=== PATIENT | female | born 1940 | race Hispanic/Latino ===

== ENCOUNTER 2017-05-15 12:16 | Inpatient (IN) | payer MEDICARE ==
[2017-05-15] MEDS ORDERED: Ceftaroline 600 MG in Sodium Chloride 0.9% 100 ML IVPB STA (12:41)
--- NOTE | 2017-05-15 12:44 | ED PDOC ---
Arrival/HPI - General Chief Complaint: Abnormal Skin Integrity Time Seen by Provider: 05/15/17 12:17 Historian: Patient, Family - History of Present Illness Narrative History of Present Illness (Text): 05/15/17 12:37 A 76 year old female, whose past medical history includes pulmonary hypertension , hyperlipidemia, DC, CAD with stents and CHF on Lasix, sent into the emergency department by [facility] for admission concerning worsening right lower extremity wound for 3 weeks. Patient notes pain and itchiness to area. She reports she completed a course of cipro 5 days ago, with no improvement of symptoms. Patient had a recent bilateral lower extremity ultrasound, which showed negative for DVT. Patient denies any fever, chills, nausea, vomiting, abdominal pain, chest pain, shortness of breath, cough, headache, dizziness or any other complaints. PMD: Dr. Kellogg Press Leader: Dr. Laura Time/Duration: Other (3 weeks) Symptom Course: Worsening Quality: Other Context: Home Past Medical History - Provider Review Nursing Documentation Reviewed: Yes - Infectious Disease Hx of Infectious Diseases: None - Reproductive Menopause: Yes - Cardiac Hx Cardiac Disorders: Yes Hx Angina: Yes Hx Circulatory Problems: Yes Hx DC: Yes (1990) Hx Hypertension: Yes Other/Comment: ashd - Pulmonary Hx Respiratory Disorders: Yes Other/Comment: sob - Neurological Hx Neurological Disorder: Yes Hx Dizziness: Yes Other/Comment: numbness upper and lower extremities - HEENT Hx HEENT Disorder: Yes Hx Cataracts: Yes - Endocrine/Metabolic Hx Endocrine Disorders: Yes Hx Hypothyroidism: Yes - Hematological/Oncological Hx Blood Disorders: Yes Hx Anemia: Yes - Integumentary Hx Dermatological Disorder: Yes Other/Comment: rash right groin - Musculoskeletal/Rheumatological Hx Musculoskeletal Disorders: Yes Hx Fractures: Yes (right ankle) Hx Osteoarthritis: Yes Hx Unsteady Gait: Yes - Gastrointestinal Hx Gall Bladder Disease: Yes - Genitourinary/Gynecological Hx Genitourinary Disorders: Yes Hx Urinary Tract Infection: Yes - Psychiatric Hx Psychophysiologic Disorder: Yes Hx Anxiety: Yes Hx Depression: Yes Hx Substance Use: No - Surgical History Hx Cataract Extraction: Yes Hx Cardiac Catheterization: Yes Hx Cholecystectomy: Yes Hx Coronary Stent: Yes (x2) Hx Dilation and Curettage: Yes - Anesthesia Hx Anesthesia: Yes Hx Anesthesia Reactions: No Family/Social History - Physician Review Nursing Documentation Reviewed: Yes Family/Social History: No Known Family HX Smoking Status: Never Smoked Hx Alcohol Use: No Hx Substance Use: No Allergies/Home Meds Allergies/Adverse Reactions: Allergies erythromycin base Allergy (Verified 05/15/17 12:34) RASH Iodinated Contrast- Oral and IV Dye [Iodinated Contrast Media - IV Dye] Allergy (Verified 05/17/16 07:16) SHORTNESS OF BREATH Penicillins Allergy (Verified 05/17/16 07:16) RASH Sulfa (Sulfonamide Antibiotics) Allergy (Verified 05/17/16 07:16) RASH ivp dye Allergy (Uncoded 05/15/17 12:34) RASH tape Allergy (Uncoded 05/15/17 12:34) RASH Home Medications: Home Meds Medication Instructions Recorded Confirmed Carvedilol [Coreg] 3.125 mg PO DAILY 05/17/16 05/15/17 Dstiobiflex 05/15/17 Furosemide [Lasix] 60 mg PO DAILY 05/15/17 05/15/17 Ginkgo Biloba 0 mg PO 05/15/17 Rosuvastatin Calcium [Crestor] 20 mg PO HS 05/15/17 05/15/17 Tramadol HCl/Acetaminophen 1 tab PO PRN PRN 05/15/17 05/15/17 [Acetaminophen-Tramadol HCl 325 mg-37.5 mg] Ubidecarenone [Co Q-10] 1 tab PO DAILY 05/15/17 05/15/17 Vitamin D3 1 tab PO DAILY 05/15/17 05/15/17 Vitamin B Complex [B Complex] 1 each PO DAILY 05/15/17 05/15/17 Review of Systems - Physician Review All systems were reviewed & negative as marked: Yes - Review of Systems Constitutional: absent: Fevers, Night Sweats Respiratory: absent: SOB, Cough Cardiovascular: absent: Chest Pain Gastrointestinal: absent: Abdominal Pain, Nausea, Vomiting Skin: absent: Other (right lower extremity wound) Neurological: absent: Headache, Dizziness Physical Exam Vital Signs Temp Pulse Resp BP Pulse Ox 05/15/17 13:30 66 18 132/59 L 98 05/15/17 12:42 98.1 F 61 18 134/57 L 98 Temperature: Afebrile Blood Pressure: Normal Pulse: Regular Respiratory Rate: Normal Appearance: Positive for: Well-Appearing, Non-Toxic, Comfortable, Other ( Elderly obese female) Pain Distress: None Mental Status: Positive for: Alert and Oriented X 3 - Systems Exam Head: Present: Atraumatic, Normocephalic Pupils: Present: PERRL Conjunctiva: Present: Normal Mouth: Present: Moist Mucous Membranes Pharnyx: Present: Normal. No: ERYTHEMA, EXUDATE, TONSILS ENLARGED Respiratory/Chest: Present: Clear to Auscultation, Good Air Exchange. No: Respiratory Distress, Accessory Muscle Use Cardiovascular: Present: Regular Rate and Rhythm, Normal S1, S2. No: Murmurs Abdomen: Present: Normal Bowel Sounds. No: Tenderness, Distention, Peritoneal Signs Upper Extremity: Present: Normal Inspection. No: Cyanosis, Edema Lower Extremity: Present: Edema (+1 edema bilaterally), NORMAL PULSES, Normal ROM, Tenderness (right posterior calf region), Swelling, Erythema (right posterior calf region), Temperature Abnormalties (Warmth to right posterior calf region), Neurovascularly Intact, Other (Superficial ulceration to right posterior calf) Neurological: Present: GCS=15, CN II-XII Intact, Speech Normal Skin: Present: Warm, Dry, Normal Color. No: Rashes Psychiatric: Present: Alert, Oriented x 3, Normal Insight, Normal Concentration Medical Decision Making ED Course and Treatment: 05/15/17 12:37 Impression: A 76 year old female sent in for worsening right lower extremity wound that is infected; negative dopplers Plan: -- Chest xray -- EKG -- Labs -- Blood and Urine culture -- Urinalysis -- Teflaro -- Reassess and disposition Progress Notes: 05/15/17 14:52 Patient with infected posterior calf; had a negative LE doppler; is refusing to repeat as she says it was too painful. She finished an outpatient cipro course with failure - will need admission for iv antibiotics as discussed with Dr. Mitchell; spoke with Dr. Chadwick, the on-call physician, for admission on his service. - Lab Interpretations Lab Results: 05/15/17 12:47 05/15/17 12:47 Lab Results 05/15/17 12:49: Urine Color Yellow, Urine Appearance Clear, Urine pH 6.0, Ur Specific [place] 1.015, Urine Protein Negative, Urine Glucose (UA) Negative, Urine Ketones Negative, Urine Blood Negative, Urine Nitrate Negative, Urine Bilirubin Negative, Urine Urobilinogen 0.2, Ur Leukocyte Esterase Small H, Urine RBC Negative, Urine WBC 2 - 5, Ur Epithelial Cells 1 - 3, Urine Bacteria Few, Hyaline Casts 0 - 2 05/15/17 12:47: Sodium 142, Potassium 4.2, Chloride 105, Carbon Dioxide 30, Anion Gap 11, BUN 44 H, Creatinine 1.7 H, Est GFR ( Amer) 36, Est GFR ( Non-Af Amer) 29, Random Glucose 102, Calcium 9.3, Magnesium 1.9, Total Bilirubin 0.5, AST 54 H, ALT 43, Alkaline Phosphatase 101, Lactate Dehydrogenase 688, Total Creatine Kinase 120, Troponin I 0.03, NT-Pro-B Natriuret Pep 1850 H, Total Protein 7.1, Albumin 3.6, Globulin 3.5, Albumin/ Globulin Ratio 1.0 L, Lipase 292 05/15/17 12:47: PT 12.7 H, INR 1.18 H, APTT 29.8 05/15/17 12:47: WBC 7.0, RBC 3.28 L, Hgb 9.9 L, Hct 29.8 L, MCV 90.9, MCH 30.2, MCHC 33.2, RDW 13.1, Plt Count 249, MPV 8.4, Gran % 66.2, Lymph % (Auto) 23.4, [place] % (Auto) 6.3 H, Eos % (Auto) 3.7, Baso % (Auto) 0.4, Gran # 4.62, Lymph # 1.6, [place] # 0.4, Eos # 0.3, Baso # 0.03 I have reviewed the lab results: Yes - RAD Interpretation Radiology Orders: 05/15/17 12:40 CHEST TWO VIEWS (PA/LAT) [RAD] Stat - EKG Interpretation EKG Interpretation (Text): 05/15/17 14:57 sinus ni @ 52 with anterolateral T waves with left axis deviation; [place] is 216 c/w first degree av block; biphasic T wave in avL; no other ST/T changes; no old ekg for comparison. Interpreted by ED Physician: Yes Type: 12 lead EKG Comparison: No previous EKG avail. - Medication Orders Current Medication Orders: Discontinued Medications Ceftaroline Fosamil 600 mg/ (Sodium Chloride) 100 mls @ 100 mls/hr IVPB Q12 [facility] PRN Reason: Protocol Stop: 05/15/17 13:40 Last Admin: 05/15/17 13:17 Dose: 100 mls/hr eMAR Start Stop Document 05/15/17 13:17 SD (Rec: 05/15/17 13:17 SD [id number]) Intravenous Solution Start Date 05/15/17 Start Time 13:17 End Date 05/15/17 End time 14:17 Total Infusion Time 60 - Scribe Statement The provider has reviewed the documentation as recorded by the Claudiaibmaged Muñoz Provider Scribe Attestation: All medical record entries made by the Scribe were at my direction and personally dictated by me. I have reviewed the chart and agree that the record accurately reflects my personal performance of the history, physical exam, medical decision making, and the department course for this patient. I have also personally directed, reviewed, and agree with the discharge instructions and disposition. Disposition/Present on Arrival - Present on Arrival Any Indicators Present on Arrival: Yes History of DVT/PE: No History of Uncontrolled Diabetes: No Urinary Catheter: Yes History of Decub. Ulcer: No History Surgical Site Infection Following: None - Disposition Have Diagnosis and Disposition been Completed?: Yes Diagnosis: Cellulitis of right leg Disposition: HOSPITALIZED Disposition Time: 14:00 Patient Plan: Admission Condition: FAIR
[2017-05-15 13:28] LABS: URINE BILIRUBIN NEGATIVE (NEGATIVE); URINE BLOOD NEGATIVE (NEGATIVE); URINE GLUCOSE (UA) NEGATIVE (NEGATIVE); URINE KETONE NEGATIVE (NEGATIVE); URINE LEUKOCYTE ESTERASE SMALL Leu/uL (NEGATIVE); URINE PROTEIN NEGATIVE mg/dL (<30 mg/dL); URINE UROBILINOGEN 0.2 E.U./dL (<1 E.U./dL)
[2017-05-15 13:30] LABS: URINE APPEARANCE CLEAR (CLEAR); URINE COLOR YELLOW (YELLOW)
[2017-05-15 13:37] LABS: URINE BACTERIA FEW (NEG); URINE RBC NEGATIVE /hpf (0-2)
[2017-05-15 13:52] LABS: BASO # 0.03 K/mm3 (0.0-2.0); BASO % 0.4 % (0.0-3.0); EOS # 0.3 (0.0-0.7); EOS % 3.7 % (1.5-5.0); GRAN # 4.62 (1.4-6.5); GRAN % 66.2 % (50.0-68.0); HEMATOCRIT 29.8 % (36.0-48.0); LYMPH # 1.6 (1.2-3.4); LYMPH % 23.4 % (22.0-35.0); MEAN CELL VOLUME 90.9 fl (80.0-105.0); MEAN CORPUSCULAR HEMOGLOBIN 30.2 pg (25.0-35.0); MEAN CORPUSCULAR HGB CONC 33.2 g/dl (31.0-37.0); MEAN PLATELET VOLUME 8.4 fl (7.0-11.0); MONO # 0.4 (0.1-0.6); MONO % 6.3 % (1.0-6.0); RED CELL DISTRIBUTION WIDTH 13.1 % (11.5-14.5)
[2017-05-15 14:01] LABS: BILIRUBIN,TOTAL 0.5 mg/dL (0.2-1.3); CALCIUM 9.3 mg/dL (8.4-10.5); MAGNESIUM 1.9 mg/dL (1.7-2.2); POTASSIUM 4.2 mmol/L (3.6-5.0); TOTAL PROTEIN 7.1 g/dL (5.8-8.3)
[2017-05-15 14:02] LABS: INR 1.18 (0.93-1.08); PARTIAL THROMBOPLASTIN TIME 29.8 Seconds (23.7-30.8)
--- NOTE | 2017-05-15 14:06 | RAD ---
HISTORY: LE swelling; R leg wound COMPARISON: No prior. TECHNIQUE: Chest PA and lateral FINDINGS: LUNGS: No active pulmonary disease. PLEURA: No significant pleural effusion identified. No pneumothorax apparent. CARDIOVASCULAR: Mild cardiomegaly OSSEOUS STRUCTURES: No significant abnormalities. VISUALIZED UPPER ABDOMEN: Normal. OTHER FINDINGS: None. IMPRESSION: No active disease.
[2017-05-15 14:12] LABS: TROPONIN I 0.03 ng/mL
[2017-05-15] MEDS ORDERED: Sodium Chloride 0.45% 1,000 ML IV SCH (19:15)
[2017-05-15] MEDS: Morphine 2 mg/ml ISec IVP PRN (21:05)
[2017-05-15] MEDS: Linezolid 600 mg in D5W 300 ml 600 MG/300 ML BAG IVPB SCH (21:50)
--- NOTE | 2017-05-15 22:05 | CARD ---
APPROVED REPORT EKG Measurement Heart [id number] <Conclusion> Sinus bradycardia with 1st degree AV block Left axis deviation Anterolateral infarct, age undetermined Abnormal ECG
[2017-05-16] MEDS ORDERED: Lubricant Eye Drops UD OS PRN (02:26)
[2017-05-16] MEDS: Morphine 2 mg/ml ISec IVP PRN ×2 (05:11→09:24)
[2017-05-16 07:10] LABS: MEAN CORPUSCULAR HGB CONC 33.3 g/dl (31.0-37.0); MEAN PLATELET VOLUME 8.4 fl (7.0-11.0); RED CELL DISTRIBUTION WIDTH 13.1 % (11.5-14.5); WHITE BLOOD COUNT 4.8 10^3/ul (4.5-11.0)
[2017-05-16] MEDS: Enoxaparin 80 mg Syringe SC SCH ×2 (07:14→07:52)
[2017-05-16] MEDS: Levothyroxine 100 MCG TAB PO SCH (07:14)
[2017-05-16 07:42] LABS: BILIRUBIN,TOTAL 0.5 mg/dL (0.2-1.3); CALCIUM 8.8 mg/dL (8.4-10.5); POTASSIUM 3.8 mmol/L (3.6-5.0); TOTAL PROTEIN 6.1 g/dL (5.8-8.3)
--- NOTE | 2017-05-16 08:29 | HP ---
HISTORY OF PRESENT ILLNESS: I saw Liseth in the emergency room. I was called down to take a look at her. She was sent in from the [facility]. She has a right lower extremity wound in the calf for three weeks, failed outpatient treatment with Cipro, p.o. antibiotics, and creams. She has been seen by the safety intern. It started to get worse and sent to the emergency room. She recently had a bilateral extremity ultrasound, which was negative for DVT. The patient of Dr. Kellogg. PAST MEDICAL HISTORY: She comes in with a past medical history of pulmonary hypertension, high cholesterol, DC, CAD, stent, CHF with a persistent right calf ulcer with angina, short of breath, dizziness, numbness of the upper and lower extremities, cataracts, hypothyroidism, anemia, rash to the right groin, right ankle fracture, osteoarthritis, unsteady gait, and urinary tract infections. She has psychological disorders of anxiety and depression, cardiac cath, coronary stents x2, cholecystectomy, and D and C. FAMILY HISTORY: Hypertension and diabetes in the family. SOCIAL HISTORY: Never smoked. No alcohol. No Drugs. ALLERGIES: SHE HAS ALLERGIES TO ERYTHROMYCIN, IODINE, SULFA, AND PENICILLIN. MEDICATIONS: She is on Coreg, Osteo Bi-Flex, Lasix, ginkgo biloba, Crestor, tramadol, acetaminophen, CoQ10, D3, and vitamin B complex. REVIEW OF SYSTEMS: No acute vision changes or hearing changes. No sore throat. No neck pain. No shortness of breath or cough. No chest pain or palpitation. No abdominal pain, nausea, vomiting, constipation, or diarrhea. There is some swelling of the legs. She has right calf wound with very much a lot of pain, very sensitive. She is very anxious and nervous and crying in front of me. No sweating, no dizziness. PHYSICAL EXAMINATION GENERAL: She is uncomfortable. She is not happy. She is very upset. She is crying. She is alert and oriented x3. VITAL SIGNS: She has 98.1 temperature, 61 pulse, 18 respiratory rate, 134/57 blood pressure, 98% O2 saturation on room air. HEENT: Head is atraumatic and normocephalic. Extraocular muscles are intact. Pupils are equally reactive to light and accommodation. Membranes are moist in the mouth. NECK: Supple. No JVD. LUNGS: Clear to auscultation. Decreased breath sounds, but clear to auscultation. No wheezes, rhonchi, or rales. HEART: Regular rate. Normal S1 and S2. ABDOMEN: Soft, morbidly obese, nontender. Positive bowel sounds. No guarding, no rebound, no CVA tenderness. EXTREMITIES: +1 pitting edema bilaterally. The right calf has got a blackish oozing, smelling, posterior calf persistent, longstanding ulcer. Warm to touch, tender to palpation. NEUROLOGIC: GCS is 15. Cranial nerves II through XII are grossly intact. Normal speech. Alert and oriented x3. SKIN: Warm and dry; otherwise besides the right calf ulcer. LYMPH: Thyroid is nonpalpable. No appreciable or palpable lymphadenopathy. LABORATORY DATA: She had multiple labs. Chest x-ray with no active disease. She has a urine, which is clean. She has a 142 sodium, potassium 4.2, BUN of 44, creatinine 1.7, a little high, put her on some gentle IV hydration. GFR is 29. Sugar is 102. She has a calcium of 9.3, magnesium 1.9, total bilirubin is 0.5, AST is 54, ALT is 43, alkaline phosphatase 101. Lactate dehydrogenase is 688. Total creatinine kinase is 120. Troponin is 0.03. BNP is 1850. Total protein is 7.1. Albumin is 3.6, lipase is 292. I put her back on her Lasix. INR is 1.18. White count 71, 9.9, 29.8, and platelets are 249. She had a dose of Teflaro in the emergency room. She will have a consult with Infectious Disease and Podiatry. I will get Physical Therapy involved. She also got some Zyvox. I am going to give her some Lovenox. Physical Therapy and we will keep a very close eye on her. She is here for failed outpatient treatment of a persistent right calf ulcer, which is oozing pus. Dmitri Chadwick DO
[2017-05-16] MEDS: Linezolid 600 mg in D5W 300 ml 600 MG/300 ML BAG IVPB SCH ×2 (09:24→21:43)
[2017-05-16] MEDS: Enoxaparin 40 mg Syringe SC SCH (09:25)
[2017-05-16] MEDS: Lubricant Eye Drops UD OU PRN ×2 (09:26→18:05)
--- NOTE | 2017-05-16 09:26 | CP.PCM.CON ---
<Danielito Mccullough - Last Filed: 05/16/17 09:19> History of Present Illness - History of Present Illness History of Present Illness: 76 year old female seen at bedside for right posterior leg wound. Patient was seen in wound care center yesterday for regularly scheduled appointment. Purulent drainage was expressed from the wound at that time and patient was admitted to hospital for continued medical care and to have ultrasound of right leg. Today patient states that she refused the ultrasound because it would hurt too much. She is aware that an MRI has been ordered for her and states that she will allow for the MRI to be done. Patient denies any further pedal complaints at this time. Patient denies n/v/f/c/cp/sob Review of Systems - Review of Systems Review of Systems: ROS unremarkable outside of HPI Past Patient History - Infectious Disease Hx of Infectious Diseases: None - Past Medical History & Family History Past Medical History?: Yes - Past Social History Smoking Status: Former Smoker - CARDIAC Hx Cardiac Disorders: Yes Hx Angina: Yes Hx Circulatory Problems: Yes Hx Heart Attack: Yes (1990) Hx Hypertension: Yes Other/Comment: ashd - PULMONARY Hx Respiratory Disorders: Yes Other/Comment: sob - NEUROLOGICAL Hx Neurological Disorder: Yes Hx Dizziness: Yes Other/Comment: numbness upper and lower extremities - HEENT Hx HEENT Problems: Yes Hx Cataracts: Yes - RENAL Hx Chronic Kidney Disease: No Hx Dialysis: No Hx Kidney Stones: No Hx Neurogenic Bladder: No Hx Pyelonephritis: No Hx Renal (Kidney) Cancer: No Hx Renal Failure: No - ENDOCRINE/METABOLIC Hx Endocrine Disorders: Yes Hx Hypothyroidism: Yes - HEMATOLOGICAL/ONCOLOGICAL Hx Blood Disorders: Yes Hx Anemia: Yes - INTEGUMENTARY Hx Dermatological Problems: Yes Other/Comment: rash right groin - MUSCULOSKELETAL/RHEUMATOLOGICAL Hx Falls: No - GASTROINTESTINAL Hx Gall Bladder Disease: Yes - GENITOURINARY/GYNECOLOGICAL Hx Genitourinary Disorders: Yes Hx Urinary Tract Infection: Yes - PSYCHIATRIC Hx Substance Use: No - SURGICAL HISTORY Hx Cataract Extraction: Yes Hx Cardiac Catheterization: Yes Hx Cholecystectomy: Yes Hx Coronary Stent: Yes (x2) Hx Dilation and Curettage: Yes - ANESTHESIA Hx Anesthesia: Yes Hx Anesthesia Reactions: No Meds Allergies/Adverse Reactions: Allergies Allergy/AdvReac Type Severity Reaction Status Date / Time erythromycin base Allergy RASH Verified 05/15/17 12:34 Iodinated Contrast- Oral and Allergy SHORTNESS Verified 05/17/16 07:16 IV Dye OF BREATH [Iodinated Contrast Media - IV Dye] Penicillins Allergy RASH Verified 05/17/16 07:16 Sulfa (Sulfonamide Allergy RASH Verified 05/17/16 07:16 Antibiotics) ivp dye Allergy RASH Uncoded 05/15/17 12:34 tape Allergy RASH Uncoded 05/15/17 12:34 - Medications Medications: Current Medications Artificial Tears (Refresh Opth Soln) 0 ml OU BID PRN PRN Reason: Dry eyes Aspirin (Aspirin Chewable) 81 mg PO DAILY [facility] Carvedilol (Coreg) 3.125 mg PO DAILY [facility] Clopidogrel Bisulfate (Plavix) 75 mg PO DAILY [facility] Enoxaparin Sodium (Lovenox) 40 mg SC DAILY [facility] PRN Reason: Protocol Furosemide (Lasix) 60 mg PO DAILY [facility] Sodium Chloride (Sodium Chloride 0.45%) 1,000 mls @ 40 mls/hr IV .Q24H [facility] Linezolid (Zyvox 600mg/300ml D5w) 600 mg in 300 mls @ 200 mls/hr IVPB Q12 [facility] PRN Reason: Protocol Stop: 05/22/17 22:01 Last Admin: 05/15/17 21:50 Dose: 200 mls/hr Levothyroxine Sodium (Synthroid) 100 mcg PO DAILY@0630 [facility] Last Admin: 05/16/17 07:14 Dose: 100 mcg Losartan Potassium (Cozaar) 25 mg PO DAILY [facility] Morphine Sulfate (Morphine) 2 mg IVP Q4H PRN PRN Reason: Pain, severe (8-10) Last Admin: 05/16/17 05:11 Dose: 2 mg Non-Formulary Medication (Ubidecarenone [Co Q-10]) 1 tab PO DAILY [facility] Tramadol/Acetaminophen (Ultracet 37.5/325 Mg) 1 tab PO Q6H PRN PRN Reason: Pain, moderate (4-7) Zolpidem Tartrate (Ambien) 5 mg PO HS PRN; Protocol PRN Reason: Insomnia Physical Exam - Constitutional Appears: Well, Non-toxic, No Acute Distress - Extremities Exam Additional comments: RLE focused exam: Vasc: DP/PT pulses palpable 2/4 b/l. CFT < 3 seconds to all digits b/l. Skin temperature warm to warm from proximal to distal, increased at right leg. Mild edema noted to periwound area Neuro: Epicritic and protective sensation grossly intact b/l Derm: Superficial wound measuring roughly 3 cm x 2 cm x 0.5 cm noted to posterior right calf. No tracking, tunneling, undermining, or probe to bone. Moderate periwound erythema noted. No purulent drainage expressed today and no malodor noted. No other clinical signs of infection appreciated. No other open lesions, wounds, maceration, xerosis, abnormal pigmentation or abnormal growths appreciated b/l MSK: POP noted to wound site - Neurological Exam Neurological exam: Alert, Oriented x3 - Psychiatric Exam Psychiatric exam: Normal Affect, Normal Mood Results - Vital Signs Recent Vital Signs: Last Vital Signs Temp 97.9 F 05/15/17 16:11 Pulse 74 05/15/17 16:11 Resp 18 05/15/17 21:00 BP 166/72 H 05/15/17 16:11 Pulse Ox 94 L 05/15/17 16:11 - Labs Result Diagrams: 05/16/17 06:30 05/16/17 06:30 Labs: Laboratory Results - last 24 hr 05/16/17 05/16/17 06:30 06:30 WBC 4.8 D RBC 3.00 L Hgb 9.0 L Hct 27.0 L MCV 90.0 MCH 30.0 MCHC 33.3 RDW 13.1 Plt Count 208 MPV 8.4 Sodium 143 Potassium 3.8 Chloride 106 Carbon Dioxide 29 Anion Gap 12 BUN 35 H Creatinine 1.5 H Est GFR ( Amer) 41 Est GFR (Non-Af Amer) 34 Random Glucose 82 Calcium 8.8 Total Bilirubin 0.5 AST 43 H D ALT 40 Alkaline Phosphatase 79 Total Protein 6.1 Albumin 3.0 Globulin 3.1 Albumin/Globulin Ratio 1.0 L Assessment & Plan - Assessment and Plan (Free Text) Assessment: 76 year old female seen at bedside for posterior right leg wound Plan: Patient seen and evaluated at bedside with attending Dr. Mitchell Charts, labs and vitals reviewed: WBC 4.8 Patient refused arterial duplex, says she will go for MRI to rule out underlying abscess formation Wound dressed with maxorb, gauze, ABD, kirlix Continue abx Awaiting official read on tib/fib xrays Continue PT No plan for surgical intervention at this time Podiatry to continue to follow while patient in house - Date & Time Date: 05/16/17 Time: 09:39 <Placido Mitchell - Last Filed: 05/16/17 17:49> Meds - Medications Medications: Current Medications Artificial Tears (Refresh Opth Soln) 0 ml OU BID PRN PRN Reason: Dry eyes Last Admin: 05/16/17 09:26 Dose: 1 ml Aspirin (Aspirin Chewable) 81 mg PO DAILY [facility] Last Admin: 05/16/17 09:25 Dose: 81 mg Carvedilol (Coreg) 3.125 mg PO DAILY [facility] Last Admin: 05/16/17 09:30 Dose: 3.125 mg Clopidogrel Bisulfate (Plavix) 75 mg PO DAILY [facility] Last Admin: 05/16/17 09:25 Dose: 75 mg Docusate Sodium (Colace) 100 mg PO BID [facility] Last Admin: 05/16/17 17:17 Dose: Not Given Enoxaparin Sodium (Lovenox) 40 mg SC DAILY [facility] PRN Reason: Protocol Last Admin: 05/16/17 09:25 Dose: Not Given Furosemide (Lasix) 60 mg PO DAILY [facility] Last Admin: 05/16/17 09:29 Dose: 60 mg Sodium Chloride (Sodium Chloride 0.45%) 1,000 mls @ 40 mls/hr IV .Q24H [facility] Linezolid (Zyvox 600mg/300ml D5w) 600 mg in 300 mls @ 200 mls/hr IVPB Q12 [facility] PRN Reason: Protocol Stop: 05/22/17 22:01 Last Admin: 05/16/17 09:24 Dose: 200 mls/hr Aztreonam (Azactam 1 Gm) 100 mls @ 100 mls/hr IVPB Q12 [facility] PRN Reason: Protocol Stop: 05/23/17 13:01 Last Admin: 05/16/17 14:22 Dose: 100 mls/hr Levothyroxine Sodium (Synthroid) 100 mcg PO DAILY@0630 [facility] Last Admin: 05/16/17 07:14 Dose: 100 mcg Losartan Potassium (Cozaar) 25 mg PO DAILY [facility] Last Admin: 05/16/17 09:26 Dose: 25 mg Morphine Sulfate (Morphine) 2 mg IVP Q4H PRN PRN Reason: Pain, severe (8-10) Last Admin: 05/16/17 09:24 Dose: 2 mg Non-Formulary Medication (Ubidecarenone [Co Q-10]) 1 tab PO DAILY [facility] Last Admin: 05/16/17 09:31 Dose: Not Given Tramadol/Acetaminophen (Ultracet 37.5/325 Mg) 1 tab PO Q6H PRN PRN Reason: Pain, moderate (4-7) Zolpidem Tartrate (Ambien) 5 mg PO HS PRN; Protocol PRN Reason: Insomnia Results - Vital Signs Recent Vital Signs: Last Vital Signs Temp 98.3 F 05/16/17 16:20 Pulse 56 L 05/16/17 16:20 Resp 18 05/16/17 16:20 BP 103/46 L 05/16/17 16:20 Pulse Ox 97 05/16/17 16:20 - Labs Result Diagrams: 05/16/17 06:30 05/16/17 06:30 Labs: Laboratory Results - last 24 hr 05/16/17 05/16/17 06:30 06:30 WBC 4.8 D RBC 3.00 L Hgb 9.0 L Hct 27.0 L MCV 90.0 MCH 30.0 MCHC 33.3 RDW 13.1 Plt Count 208 MPV 8.4 Sodium 143 Potassium 3.8 Chloride 106 Carbon Dioxide 29 Anion Gap 12 BUN 35 H Creatinine 1.5 H Est GFR ( Amer) 41 Est GFR (Non-Af Amer) 34 Random Glucose 82 Calcium 8.8 Total Bilirubin 0.5 AST 43 H D ALT 40 Alkaline Phosphatase 79 Total Protein 6.1 Albumin 3.0 Globulin 3.1 Albumin/Globulin Ratio 1.0 L Attending/Attestation - Attestation I have personally seen and examined this patient.: Yes I have fully participated in the care of the patient.: Yes I have reviewed all pertinent clinical information: Yes
[2017-05-16] MEDS: UBIDECARENONE PO SCH (09:31)
--- NOTE | 2017-05-16 10:14 | RAD ---
PROCEDURE: Radiographs of the right tibia and fibula. HISTORY: leg pain COMPARISON: None available. TECHNIQUE: Frontal and lateral views obtained. FINDINGS: BONES: Limited upper lateral view. Here prominent soft tissues noted. No fracture or destructive lesion. JOINT SPACES: Unremarkable. OTHER FINDINGS: Arterial vascular calcifications lower leg IMPRESSION: No gross fracture. Arterial atherosclerotic vascular disease lower leg
--- NOTE | 2017-05-16 11:28 | PN ---
DATE: SUBJECTIVE: I saw her resting comfortably in bed, but did not well last night. I added Ambien to her nighttime medication. She is still very upset about the left calf, having an infection there. She is refusing ultrasound of her leg because it hurts too much and she is on IV antibiotics. PHYSICAL EXAMINATION VITAL SIGNS: She has a 97.9 temperature, 74 pulse, 166/72 blood pressure, 20 respiratory rate, and 98% O2 sat on room air. HEENT: Head is atraumatic, normocephalic. HEART: Regular rate. LUNGS: Decreased breath sounds. Poor inspiration, but clear. ABDOMEN: Soft, morbidly obese, nontender. Positive bowel sounds. EXTREMITIES: The right leg was wrapped. She does not want me to touch it at all. MEDICATIONS: She is currently on Ambien, aspirin, Coreg, Cozaar, Lasix, Lovenox, morphine, Plavix, eye drops, IV fluids, Synthroid, CoQ10, Ultracet, and Zyvox. She failed outpatient treatment. LABORATORY DATA: She had blood test. She has 4.8 white count, 9 hemoglobin, 27 hematocrit with 208 platelets. She has 143 sodium, potassium 3.8, BUN 35, creatinine 1.5 and better, GFR is 34, sugar is 82, calcium is 8.8. Total bilirubin is 0.5, AST is 43, ALT is 40, alkaline phosphatase 79, total protein 6.1. PLAN: She is going to be seen by Podiatry and Infectious Disease. We will check her labs tomorrow. She will be on Lovenox at a prophylaxis dose, 40 daily. We will continue with aggressive treatment and care and Podiatry treatment and Infectious Disease treatment of her right calf persistent ulcer, which failed outpatient therapy. Dmitri Chadwick DO
--- NOTE | 2017-05-16 12:06 | MRI ---
PROCEDURE: MRI of the right lower extremity without contrast HISTORY: Painful right lower leg ulcer- r/o abscess COMPARISON: TECHNIQUE: MRI of the right lower extremity was performed in multiple planes using multiple pulse sequences. FINDINGS: There is subcutaneous edema bilaterally right greater than left. There is no evidence of a focal abscess. There is no evidence of osteomyelitis. IMPRESSION: No evidence of abscess or osteomyelitis
--- NOTE | 2017-05-16 12:54 | CP.PCM.CON ---
History of Present Illness - History of Present Illness History of Present Illness: 76 year old female with PMH of pulmonary HTN, morbid obesity with BMI 46, CAD S/ P PCI with chronic CHF, dyslipidemia came in to [facility] complaining of worsening pain and swelling of her right lower extremity associated with a wound on the posterior portion of the right leg. She does not recall specific trauma to the leg, no insect bites. Her daughter has pet cats that at times brushes her legs but has not been scratched by the cats. She has had the wound for about 2-3 weeks now. She has not taken antibiotics recently. She denies fever or chills, no nausea or vomiting, no chest pain, no SOB, no abdominal pain, no diarrhea, no dysuria. She denies soaking her feet in water. Infectious Diseases consult is requested to further evaluate and manage. Review of Systems - Review of Systems All systems: reviewed and no additional remarkable complaints except (as per HPI ) Past Patient History - Infectious Disease Hx of Infectious Diseases: None - Past Medical History & Family History Past Medical History?: Yes - Past Social History Smoking Status: Never Smoked - CARDIAC Hx Cardiac Disorders: Yes Hx Angina: Yes Hx Circulatory Problems: Yes Hx Heart Attack: Yes (1990) Hx Hypertension: Yes Other/Comment: ashd - PULMONARY Hx Respiratory Disorders: Yes Other/Comment: sob - NEUROLOGICAL Hx Neurological Disorder: Yes Hx Dizziness: Yes Other/Comment: numbness upper and lower extremities - HEENT Hx HEENT Problems: Yes Hx Cataracts: Yes - ENDOCRINE/METABOLIC Hx Endocrine Disorders: Yes Hx Hypothyroidism: Yes - HEMATOLOGICAL/ONCOLOGICAL Hx Blood Disorders: Yes Hx Anemia: Yes - INTEGUMENTARY Hx Dermatological Problems: Yes Other/Comment: rash right groin - MUSCULOSKELETAL/RHEUMATOLOGICAL Hx Musculoskeletal Disorders: Yes Hx Fractures: Yes (right ankle) Hx Osteoarthritis: Yes Hx Unsteady Gait: Yes - GASTROINTESTINAL Hx Gall Bladder Disease: Yes - GENITOURINARY/GYNECOLOGICAL Hx Genitourinary Disorders: Yes Hx Urinary Tract Infection: Yes - PSYCHIATRIC Hx Psychophysiologic Disorder: Yes Hx Anxiety: Yes Hx Depression: Yes Hx Substance Use: No - SURGICAL HISTORY Hx Cataract Extraction: Yes Hx Cardiac Catheterization: Yes Hx Cholecystectomy: Yes Hx Coronary Stent: Yes (x2) Hx Dilation and Curettage: Yes - ANESTHESIA Hx Anesthesia: Yes Hx Anesthesia Reactions: No Meds Allergies/Adverse Reactions: Allergies Allergy/AdvReac Type Severity Reaction Status Date / Time erythromycin base Allergy RASH Verified 05/15/17 12:34 Iodinated Contrast- Oral and Allergy SHORTNESS Verified 05/17/16 07:16 IV Dye OF BREATH [Iodinated Contrast Media - IV Dye] Penicillins Allergy RASH Verified 05/17/16 07:16 Sulfa (Sulfonamide Allergy RASH Verified 05/17/16 07:16 Antibiotics) ivp dye Allergy RASH Uncoded 05/15/17 12:34 tape Allergy RASH Uncoded 05/15/17 12:34 - Medications Medications: Current Medications Aspirin (Aspirin Chewable) 81 mg PO DAILY [facility] Carvedilol (Coreg) 3.125 mg PO DAILY [facility] Clopidogrel Bisulfate (Plavix) 75 mg PO DAILY [facility] Furosemide (Lasix) 60 mg PO DAILY [facility] Sodium Chloride (Sodium Chloride 0.45%) 1,000 mls @ 40 mls/hr IV .Q24H [facility] Linezolid (Zyvox 600mg/300ml D5w) 600 mg in 300 mls @ 200 mls/hr IVPB Q12 [facility] PRN Reason: Protocol Stop: 05/22/17 22:01 Levothyroxine Sodium (Synthroid) 100 mcg PO DAILY@0630 [facility] Losartan Potassium (Cozaar) 25 mg PO DAILY [facility] Non-Formulary Medication (Ubidecarenone [Co Q-10]) 1 tab PO DAILY [facility] Tramadol/Acetaminophen (Ultracet 37.5/325 Mg) 1 tab PO Q6H PRN PRN Reason: Pain, moderate (4-7) Physical Exam - Constitutional Appears: Non-toxic, No Acute Distress - Head Exam Head Exam: NORMAL INSPECTION - ENT Exam ENT Exam: Mucous Membranes Moist - Neck Exam Neck exam: Negative for: Lymphadenopathy, Meningismus - Respiratory Exam Respiratory Exam: Decreased Breath Sounds - Cardiovascular Exam Cardiovascular Exam: +S1, +S2 - GI/Abdominal Exam GI & Abdominal Exam: Soft. absent: Tenderness - Extremities Exam Additional comments: right leg with wound on the posterior leg, currently no oozing, but tender to touch, erythematous Results - Vital Signs Recent Vital Signs: Last Vital Signs Temp 97.9 F 05/15/17 16:11 Pulse 74 05/15/17 16:11 Resp 20 05/15/17 16:11 BP 166/72 H 05/15/17 16:11 Pulse Ox 94 L 05/15/17 16:11 - Labs Result Diagrams: 05/16/17 06:30 05/16/17 06:30 Assessment & Plan - Assessment and Plan (Free Text) Plan: Assessment right lower extremity skin and skin structure infection pulmonary HTN morbid obesity with BMI 46 CAD S/P PCI with chronic CHF dyslipidemia Plan Started patient on Zyvox and Azactam pending blood cx, wound cx; reviewed MRI which did not show abscess or ostemyelitis suggest podiatry evaluation will monitor clinically
[2017-05-16] MEDS: Aztreonam 1 Gm in NS 100mL 100 ML IVPB SCH ×2 (14:22→23:51)
[2017-05-17] MEDS: Levothyroxine 100 MCG TAB PO SCH (06:29)
[2017-05-17 07:14] LABS: HEMATOCRIT 28.6 % (36.0-48.0); MEAN CELL VOLUME 90.8 fl (80.0-105.0); MEAN CORPUSCULAR HEMOGLOBIN 29.5 pg (25.0-35.0); MEAN CORPUSCULAR HGB CONC 32.5 g/dl (31.0-37.0); MEAN PLATELET VOLUME 8.5 fl (7.0-11.0); RED CELL DISTRIBUTION WIDTH 13.4 % (11.5-14.5); WHITE BLOOD COUNT 5.4 10^3/ul (4.5-11.0)
[2017-05-17 07:24] LABS: BILIRUBIN,TOTAL 0.6 mg/dL (0.2-1.3); CALCIUM 8.8 mg/dL (8.4-10.5); TOTAL PROTEIN 6.2 g/dL (5.8-8.3)
[2017-05-17] MEDS: Morphine 2 mg/ml ISec IVP PRN ×3 (08:23→18:53)
[2017-05-17 08:29] VITALS: RESP 20
[2017-05-17] MEDS: Enoxaparin 40 mg Syringe SC SCH (09:51)
[2017-05-17] MEDS: Linezolid 600 mg in D5W 300 ml 600 MG/300 ML BAG IVPB SCH ×2 (09:51→21:13)
[2017-05-17] MEDS: Simethicone 80 mg Chewtab PO PRN ×3 (10:57→21:14)
[2017-05-17] MEDS: Aztreonam 1 Gm in NS 100mL 100 ML IVPB SCH ×2 (11:40→21:28)
--- NOTE | 2017-05-17 13:02 | CP.PCM.PN ---
<Danielito Mccullough - Last Filed: 05/17/17 15:26> Subjective - Date & Time of Evaluation Date of Evaluation: 05/17/17 Time of Evaluation: 12:59 - Subjective Subjective: Patient is a 76 year old female who is seen at bedside today for infected posterior right leg ulceration. Patient states that she is feeling well. She denies any overnight events. Denies any further pedal or leg complaints at this time. Denies N/V/F/C/CP/SOB. Objective - Vital Signs/Intake and Output Vital Signs (last 24 hours): Temp Pulse Resp BP Pulse Ox 98.2 F 83 20 105/55 L 100 05/17/17 08:28 05/17/17 09:50 05/17/17 08:28 05/17/17 09:49 05/17/17 08:28 Intake and Output: 05/17/17 05/17/17 06:59 18:59 Intake Total 2280 Balance 2280 - Medications Medications: Current Medications Artificial Tears (Refresh Opth Soln) 0 ml OU BID PRN PRN Reason: Dry eyes Last Admin: 05/16/17 18:05 Dose: 1 ml Aspirin (Aspirin Chewable) 81 mg PO DAILY [facility] Last Admin: 05/17/17 09:51 Dose: 81 mg Carvedilol (Coreg) 3.125 mg PO DAILY [facility] Last Admin: 05/17/17 09:50 Dose: 3.125 mg Clopidogrel Bisulfate (Plavix) 75 mg PO DAILY [facility] Last Admin: 05/17/17 09:50 Dose: 75 mg Docusate Sodium (Colace) 100 mg PO BID [facility] Last Admin: 05/17/17 09:50 Dose: 100 mg Enoxaparin Sodium (Lovenox) 40 mg SC DAILY [facility] PRN Reason: Protocol Last Admin: 05/17/17 09:51 Dose: 40 mg Furosemide (Lasix) 60 mg PO DAILY [facility] Last Admin: 05/17/17 09:49 Dose: 60 mg Sodium Chloride (Sodium Chloride 0.45%) 1,000 mls @ 40 mls/hr IV .Q24H [facility] Last Admin: 05/16/17 18:15 Dose: 40 mls/hr Linezolid (Zyvox 600mg/300ml D5w) 600 mg in 300 mls @ 200 mls/hr IVPB Q12 [facility] PRN Reason: Protocol Stop: 05/22/17 22:01 Last Admin: 05/17/17 09:51 Dose: 200 mls/hr Aztreonam (Azactam 1 Gm) 100 mls @ 100 mls/hr IVPB Q12 [facility] PRN Reason: Protocol Stop: 05/23/17 13:01 Last Admin: 05/17/17 11:40 Dose: 100 mls/hr Levothyroxine Sodium (Synthroid) 100 mcg PO DAILY@0630 [facility] Last Admin: 05/17/17 06:29 Dose: 100 mcg Losartan Potassium (Cozaar) 25 mg PO DAILY [facility] Last Admin: 05/17/17 09:50 Dose: 25 mg Morphine Sulfate (Morphine) 2 mg IVP Q4H PRN PRN Reason: Pain, severe (8-10) Last Admin: 05/17/17 08:23 Dose: 2 mg Non-Formulary Medication (Ubidecarenone [Co Q-10]) 1 tab PO DAILY [facility] Last Admin: 05/16/17 09:31 Dose: Not Given Simethicone (Mylicon Chew Tab) 80 mg PO PCHS PRN PRN Reason: GI distress Last Admin: 05/17/17 10:57 Dose: 80 mg Tramadol/Acetaminophen (Ultracet 37.5/325 Mg) 1 tab PO Q6H PRN PRN Reason: Pain, moderate (4-7) Zolpidem Tartrate (Ambien) 5 mg PO HS PRN; Protocol PRN Reason: Insomnia Last Admin: 05/16/17 21:43 Dose: 5 mg - Labs Labs: 05/17/17 07:09 05/17/17 07:09 PT 12.7 Seconds (9.9-11.8) H 05/15/17 12:47 INR 1.18 (0.93-1.08) H 05/15/17 12:47 APTT 29.8 Seconds (23.7-30.8) 05/15/17 12:47 - Constitutional Appears: Well, Non-toxic, No Acute Distress - Extremities Exam Additional comments: RLE focused exam: Vasc: DP/PT pulses palpable 2/4 b/l. CFT < 3 seconds to all digits b/l. Skin temperature warm to warm from proximal to distal, increased at right leg. Mild edema noted to periwound area Neuro: Epicritic and protective sensation grossly intact b/l Derm: Superficial wound measuring roughly 3 cm x 2 cm x 0.5 cm noted to posterior right calf. No tracking, tunneling, undermining, or probe to bone. Moderate periwound erythema noted, decreased from yesterday. Serous drainage noted on dressing. No purulent drainage expressed today and no malodor noted. No other clinical signs of infection appreciated. No other open lesions, wounds , maceration, xerosis, abnormal pigmentation or abnormal growths appreciated b/l MSK: POP noted to wound site - Neurological Exam Neurological Exam: Alert, Awake, Oriented x3 - Psychiatric Exam Psychiatric exam: Normal Affect, Normal Mood Assessment and Plan - Assessment and Plan (Free Text) Assessment: 76 year old female seen at bedside for infected posterior right leg wound Plan: Patient seen and evaluated at bedside with attending Dr. Mitchell Charts, labs and vitals reviewed: WBC 5.4 Wound dressed with optifoam dressing and wrapped lightly with MOJGAN Continue IV abx LE MRI: No signs of underlying abscess, no signs of xray Continue PT No surgical intervention planned at this time residential visits recommended for dressing changes once patient is DC'd Patient to follow up in wound care center weekly once DC'd Podiatry will continue to follow while patient in house <Placido Mitchell - Last Filed: 05/18/17 10:09> Objective - Vital Signs/Intake and Output Vital Signs (last 24 hours): Temp Pulse Resp BP Pulse Ox 99 F 68 20 106/56 L 96 05/18/17 08:43 05/18/17 08:43 05/18/17 08:43 05/18/17 08:43 05/18/17 08:43 Intake and Output: 05/18/17 05/18/17 06:59 18:59 Intake Total 180 Balance 180 - Medications Medications: Current Medications Artificial Tears (Refresh Opth Soln) 0 ml OU BID PRN PRN Reason: Dry eyes Last Admin: 05/16/17 18:05 Dose: 1 ml Aspirin (Aspirin Chewable) 81 mg PO DAILY [facility] Last Admin: 05/17/17 09:51 Dose: 81 mg Carvedilol (Coreg) 3.125 mg PO DAILY [facility] Last Admin: 05/17/17 09:50 Dose: 3.125 mg Clopidogrel Bisulfate (Plavix) 75 mg PO DAILY [facility] Last Admin: 05/17/17 09:50 Dose: 75 mg Docusate Sodium (Colace) 100 mg PO BID [facility] Last Admin: 05/17/17 18:34 Dose: 100 mg Enoxaparin Sodium (Lovenox) 40 mg SC DAILY [facility] PRN Reason: Protocol Last Admin: 05/17/17 09:51 Dose: 40 mg Furosemide (Lasix) 60 mg PO DAILY [facility] Last Admin: 05/17/17 09:49 Dose: 60 mg Linezolid (Zyvox 600mg/300ml D5w) 600 mg in 300 mls @ 200 mls/hr IVPB Q12 [facility] PRN Reason: Protocol Stop: 05/22/17 22:01 Last Admin: 05/17/17 21:13 Dose: 200 mls/hr Aztreonam (Azactam 1 Gm) 100 mls @ 100 mls/hr IVPB Q12 [facility] PRN Reason: Protocol Stop: 05/23/17 13:01 Last Admin: 05/17/17 21:28 Dose: 100 mls/hr Sodium Chloride (Sodium Chloride 0.45%) 1,000 mls @ 40 mls/hr IV .Q24H [facility] Levothyroxine Sodium (Synthroid) 100 mcg PO DAILY@0630 [facility] Last Admin: 05/18/17 05:54 Dose: 100 mcg Losartan Potassium (Cozaar) 25 mg PO DAILY [facility] Last Admin: 05/17/17 09:50 Dose: 25 mg Morphine Sulfate (Morphine) 2 mg IVP Q4H PRN PRN Reason: Pain, severe (8-10) Last Admin: 05/18/17 04:21 Dose: 2 mg Non-Formulary Medication (Ubidecarenone [Co Q-10]) 1 tab PO DAILY [facility] Last Admin: 05/17/17 18:35 Dose: Not Given Simethicone (Mylicon Chew Tab) 80 mg PO [facility] PRN PRN Reason: GI distress Last Admin: 05/17/17 21:14 Dose: 80 mg Tramadol/Acetaminophen (Ultracet 37.5/325 Mg) 1 tab PO Q6H PRN PRN Reason: Pain, moderate (4-7) Last Admin: 05/18/17 08:02 Dose: 1 tab Zolpidem Tartrate (Ambien) 5 mg PO HS PRN; Protocol PRN Reason: Insomnia Last Admin: 05/17/17 21:14 Dose: 5 mg - Labs Labs: 05/18/17 06:37 05/18/17 06:37 PT 12.7 Seconds (9.9-11.8) H 05/15/17 12:47 INR 1.18 (0.93-1.08) H 05/15/17 12:47 APTT 29.8 Seconds (23.7-30.8) 05/15/17 12:47 Attending/Attestation - Attestation I have personally seen and examined this patient.: Yes I have fully participated in the care of the patient.: Yes I have reviewed all pertinent clinical information, including history, physical exam and plan: Yes
[2017-05-17 16:40] VITALS: O2SAT 96
[2017-05-17] MEDS: UBIDECARENONE PO SCH (18:35)
[2017-05-17] MEDS: TraMADol/Apap 37.5/325 mg Tab PO PRN (21:14)
--- NOTE | 2017-05-17 21:31 | CP.PCM.PN ---
Subjective - Date & Time of Evaluation Date of Evaluation: 05/17/17 Time of Evaluation: 10:10 - Subjective Subjective: Comfortable, a little less pain in the right leg, no fevers overnight. Objective - Vital Signs/Intake and Output Vital Signs (last 24 hours): Temp Pulse Resp BP Pulse Ox 98.2 F 75 20 105/52 L 100 05/17/17 08:28 05/17/17 08:28 05/17/17 08:28 05/17/17 08:28 05/17/17 08:28 Intake and Output: 05/17/17 05/17/17 06:59 18:59 Intake Total 2280 Balance 2280 - Medications Medications: Current Medications Artificial Tears (Refresh Opth Soln) 0 ml OU BID PRN PRN Reason: Dry eyes Last Admin: 05/16/17 18:05 Dose: 1 ml Aspirin (Aspirin Chewable) 81 mg PO DAILY [facility] Last Admin: 05/16/17 09:25 Dose: 81 mg Carvedilol (Coreg) 3.125 mg PO DAILY [facility] Last Admin: 05/16/17 09:30 Dose: 3.125 mg Clopidogrel Bisulfate (Plavix) 75 mg PO DAILY [facility] Last Admin: 05/16/17 09:25 Dose: 75 mg Docusate Sodium (Colace) 100 mg PO BID [facility] Last Admin: 05/16/17 17:17 Dose: Not Given Enoxaparin Sodium (Lovenox) 40 mg SC DAILY [facility] PRN Reason: Protocol Last Admin: 05/16/17 09:25 Dose: Not Given Furosemide (Lasix) 60 mg PO DAILY [facility] Last Admin: 05/16/17 09:29 Dose: 60 mg Sodium Chloride (Sodium Chloride 0.45%) 1,000 mls @ 40 mls/hr IV .Q24H [facility] Last Admin: 05/16/17 18:15 Dose: 40 mls/hr Linezolid (Zyvox 600mg/300ml D5w) 600 mg in 300 mls @ 200 mls/hr IVPB Q12 [facility] PRN Reason: Protocol Stop: 05/22/17 22:01 Last Admin: 05/16/17 21:43 Dose: 200 mls/hr Aztreonam (Azactam 1 Gm) 100 mls @ 100 mls/hr IVPB Q12 [facility] PRN Reason: Protocol Stop: 05/23/17 13:01 Last Admin: 05/16/17 23:51 Dose: 100 mls/hr Levothyroxine Sodium (Synthroid) 100 mcg PO DAILY@0630 [facility] Last Admin: 05/17/17 06:29 Dose: 100 mcg Losartan Potassium (Cozaar) 25 mg PO DAILY [facility] Last Admin: 05/16/17 09:26 Dose: 25 mg Morphine Sulfate (Morphine) 2 mg IVP Q4H PRN PRN Reason: Pain, severe (8-10) Last Admin: 05/17/17 08:23 Dose: 2 mg Non-Formulary Medication (Ubidecarenone [Co Q-10]) 1 tab PO DAILY [facility] Last Admin: 05/16/17 09:31 Dose: Not Given Tramadol/Acetaminophen (Ultracet 37.5/325 Mg) 1 tab PO Q6H PRN PRN Reason: Pain, moderate (4-7) Zolpidem Tartrate (Ambien) 5 mg PO HS PRN; Protocol PRN Reason: Insomnia Last Admin: 05/16/17 21:43 Dose: 5 mg - Labs Labs: 05/17/17 07:09 05/17/17 07:09 PT 12.7 Seconds (9.9-11.8) H 05/15/17 12:47 INR 1.18 (0.93-1.08) H 05/15/17 12:47 APTT 29.8 Seconds (23.7-30.8) 05/15/17 12:47 - Constitutional Appears: Non-toxic, No Acute Distress - Head Exam Head Exam: NORMAL INSPECTION - ENT Exam ENT Exam: Mucous Membranes Moist - Neck Exam Neck Exam: absent: Meningismus - Respiratory Exam Respiratory Exam: Decreased Breath Sounds - Cardiovascular Exam Cardiovascular Exam: +S1, +S2 - GI/Abdominal Exam GI & Abdominal Exam: Soft. absent: Tenderness - Extremities Exam Additional comments: right leg with dressings in place Assessment and Plan - Assessment and Plan (Free Text) Plan: Assessment right lower extremity skin and skin structure infection, slowly improving pulmonary HTN morbid obesity with BMI 46 CAD S/P PCI with chronic CHF dyslipidemia Plan continue Zyvox and Azactam day 2; blood cx are negative; follow up wound cx; reviewed MRI which did not show abscess or ostemyelitis reviewed podiatry evaluation will continue to monitor clinically
--- NOTE | 2017-05-17 23:52 | CP.PCM.PN ---
Subjective - Date & Time of Evaluation Date of Evaluation: 05/17/17 Time of Evaluation: 19:45 - Subjective Subjective: Seen and examined the patient at the bed side. I have spoken her son Telephonically. C/O Right Lower LE I&D site specially when she is trying to move the Extremities. The Pain mediation alleviates the pain. Wound dressing was changed today. Objective - Vital Signs/Intake and Output Vital Signs (last 24 hours): Temp Pulse Resp BP Pulse Ox 98.7 F 76 20 95/52 L 96 05/17/17 16:39 05/17/17 16:39 05/17/17 16:39 05/17/17 16:39 05/17/17 16:39 Intake and Output: 05/17/17 05/18/17 18:59 06:59 Intake Total 360 Balance 360 - Medications Medications: Current Medications Artificial Tears (Refresh Opth Soln) 0 ml OU BID PRN PRN Reason: Dry eyes Last Admin: 05/16/17 18:05 Dose: 1 ml Aspirin (Aspirin Chewable) 81 mg PO DAILY [facility] Last Admin: 05/17/17 09:51 Dose: 81 mg Carvedilol (Coreg) 3.125 mg PO DAILY [facility] Last Admin: 05/17/17 09:50 Dose: 3.125 mg Clopidogrel Bisulfate (Plavix) 75 mg PO DAILY [facility] Last Admin: 05/17/17 09:50 Dose: 75 mg Docusate Sodium (Colace) 100 mg PO BID [facility] Last Admin: 05/17/17 18:34 Dose: 100 mg Enoxaparin Sodium (Lovenox) 40 mg SC DAILY [facility] PRN Reason: Protocol Last Admin: 05/17/17 09:51 Dose: 40 mg Furosemide (Lasix) 60 mg PO DAILY [facility] Last Admin: 05/17/17 09:49 Dose: 60 mg Linezolid (Zyvox 600mg/300ml D5w) 600 mg in 300 mls @ 200 mls/hr IVPB Q12 [facility] PRN Reason: Protocol Stop: 05/22/17 22:01 Last Admin: 05/17/17 21:13 Dose: 200 mls/hr Aztreonam (Azactam 1 Gm) 100 mls @ 100 mls/hr IVPB Q12 [facility] PRN Reason: Protocol Stop: 05/23/17 13:01 Last Admin: 05/17/17 21:28 Dose: 100 mls/hr Levothyroxine Sodium (Synthroid) 100 mcg PO DAILY@0630 [facility] Last Admin: 05/17/17 06:29 Dose: 100 mcg Losartan Potassium (Cozaar) 25 mg PO DAILY [facility] Last Admin: 05/17/17 09:50 Dose: 25 mg Morphine Sulfate (Morphine) 2 mg IVP Q4H PRN PRN Reason: Pain, severe (8-10) Last Admin: 05/17/17 18:53 Dose: 2 mg Non-Formulary Medication (Ubidecarenone [Co Q-10]) 1 tab PO DAILY [facility] Last Admin: 05/17/17 18:35 Dose: Not Given Simethicone (Mylicon Chew Tab) 80 mg PO [facility] PRN PRN Reason: GI distress Last Admin: 05/17/17 21:14 Dose: 80 mg Tramadol/Acetaminophen (Ultracet 37.5/325 Mg) 1 tab PO Q6H PRN PRN Reason: Pain, moderate (4-7) Last Admin: 05/17/17 21:14 Dose: 1 tab Zolpidem Tartrate (Ambien) 5 mg PO HS PRN; Protocol PRN Reason: Insomnia Last Admin: 05/17/17 21:14 Dose: 5 mg - Labs Labs: 05/17/17 07:09 05/17/17 07:09 PT 12.7 Seconds (9.9-11.8) H 05/15/17 12:47 INR 1.18 (0.93-1.08) H 05/15/17 12:47 APTT 29.8 Seconds (23.7-30.8) 05/15/17 12:47 - Constitutional Appears: Well, No Acute Distress - Head Exam Head Exam: ATRAUMATIC, NORMAL INSPECTION, NORMOCEPHALIC - Eye Exam Eye Exam: EOMI, Normal appearance, PERRL Pupil Exam: NORMAL ACCOMODATION, PERRL - ENT Exam ENT Exam: Mucous Membranes Moist, Normal Exam - Neck Exam Neck Exam: Full ROM, Normal Inspection. absent: Lymphadenopathy - Respiratory Exam Respiratory Exam: Clear to Ausculation Bilateral, NORMAL BREATHING PATTERN - Cardiovascular Exam Cardiovascular Exam: REGULAR RHYTHM, +S1, +S2. absent: Murmur - GI/Abdominal Exam GI & Abdominal Exam: Soft, Normal Bowel Sounds. absent: Tenderness - Extremities Exam Extremities Exam: Full ROM, Normal Capillary Refill, Normal Inspection. absent : Joint Swelling, Pedal Edema - Back Exam Back Exam: NORMAL INSPECTION - Neurological Exam Neurological Exam: Alert, Awake, CN II-XII Intact, Normal Gait, Oriented x3 - Psychiatric Exam Psychiatric exam: Normal Affect, Normal Mood - Skin Skin Exam: Dry, Intact, Normal Color, Warm Assessment and Plan (1) Cellulitis of right leg Assessment & Plan: Continue IV Aztreonam and Zyvox Continue Wound Care Continue Morphine PRN Status: Acute
[2017-05-18] MEDS: Morphine 2 mg/ml ISec IVP PRN (04:21)
[2017-05-18] MEDS: Levothyroxine 100 MCG TAB PO SCH ×2 (05:48→05:54)
[2017-05-18 07:03] LABS: HEMATOCRIT 28.8 % (36.0-48.0); MEAN CELL VOLUME 91.7 fl (80.0-105.0); MEAN CORPUSCULAR HEMOGLOBIN 29.6 pg (25.0-35.0); MEAN CORPUSCULAR HGB CONC 32.3 g/dl (31.0-37.0); MEAN PLATELET VOLUME 8.6 fl (7.0-11.0); RED CELL DISTRIBUTION WIDTH 13.8 % (11.5-14.5); WHITE BLOOD COUNT 6.4 10^3/ul (4.5-11.0)
[2017-05-18 07:08] LABS: CALCIUM 8.6 mg/dL (8.4-10.5); POTASSIUM 4.1 mmol/L (3.6-5.0)
[2017-05-18] MEDS ORDERED: Sodium Chloride 0.45% 1,000 ML IV SCH (07:30)
[2017-05-18] MEDS: TraMADol/Apap 37.5/325 mg Tab PO PRN (08:02)
[2017-05-18 08:44] VITALS: PULSE 68; TEMP 99
[2017-05-18] MEDS ORDERED: HYDROmorphone 1 mg/ml ISec IVP STA (09:20)
--- NOTE | 2017-05-18 11:38 | PN ---
DATE: 05/18/2017 SUBJECTIVE: The patient is in bed, in no acute distress, and nontoxic. PHYSICAL EXAMINATION: VITAL SIGNS: Temperature is 99, blood pressure is 106/60, and respiratory rate of 18. HEENT: Examination of HEENT is unremarkable. NECK: Supple. LUNGS: Have decreased breath sounds. HEART: Exam is normal S1 and S2. GASTROINTESTINAL: Abdominal emanation is soft and nontender. LABORATORY DATA: Examination reveals a white count of 6.4, hemoglobin of 9, platelets of 184 and coagulation is noted. Chemistries reveals a BUN of 31 and creatinine of 1.9. Urinalysis is noted and microbiology reveals the blood cultures are no growth. Urine cultures are no growth. ASSESSMENT AND PLAN: This is a 76-year-old female seen earlier in 569, bed 2 where right lower extremity skin and skin soft tissue infection, slowly improving, pulmonary hypertension on Zyvox, and Azactam day number 3. Magnetic resonance imaging is reviewed. The patient with multiple allergies, limited options, no evidence of osteomyelitis on the magnetic resonance imaging. Esteban Levin MD
[2017-05-18 11:39] VITALS: BP 112/62
[2017-05-18] MEDS: Enoxaparin 40 mg Syringe SC SCH ×2 (11:40→11:55)
[2017-05-18] MEDS: Linezolid 600 mg in D5W 300 ml 600 MG/300 ML BAG IVPB SCH (11:42)
[2017-05-18] MEDS: UBIDECARENONE PO SCH (11:48)
[2017-05-18] MEDS ORDERED: HYDROmorphone 1 mg/ml ISec IVP PRN (11:50)
[2017-05-18] MEDS: HYDROmorphone 1 mg/ml ISec IVP PRN ×2 (13:35→18:37)
[2017-05-18] MEDS: Aztreonam 1 Gm in NS 100mL 100 ML IVPB SCH (14:29)
--- NOTE | 2017-05-18 14:48 | CP.PCM.PN ---
<Jamel,Mark - Last Filed: 05/18/17 14:45> Subjective - Date & Time of Evaluation Date of Evaluation: 05/18/17 Time of Evaluation: 14:45 - Subjective Subjective: Patient is a 76 year old female who is seen at bedside today for infected posterior right leg ulceration. Patient states that she has been having severe pain to the entirety of the right leg, exacerbated when ambulating. Patient says that she believes the pain is caused by sciatica and herniated disc. She denies any overnight events. Denies any further pedal or leg complaints at this time. Denies N/V/F/C/CP/SOB. Objective - Vital Signs/Intake and Output Vital Signs (last 24 hours): Temp Pulse Resp BP Pulse Ox 99 F 68 20 112/62 96 05/18/17 08:43 05/18/17 11:47 05/18/17 08:43 05/18/17 11:47 05/18/17 08:43 Intake and Output: 05/18/17 05/18/17 06:59 18:59 Intake Total 180 Balance 180 - Medications Medications: Current Medications Artificial Tears (Refresh Opth Soln) 0 ml OU BID PRN PRN Reason: Dry eyes Last Admin: 05/16/17 18:05 Dose: 1 ml Aspirin (Aspirin Chewable) 81 mg PO DAILY [facility] Last Admin: 05/18/17 11:37 Dose: 81 mg Carvedilol (Coreg) 3.125 mg PO DAILY [facility] Last Admin: 05/18/17 11:36 Dose: 3.125 mg Clopidogrel Bisulfate (Plavix) 75 mg PO DAILY [facility] Last Admin: 05/18/17 11:37 Dose: 75 mg Docusate Sodium (Colace) 100 mg PO BID [facility] Last Admin: 05/18/17 11:48 Dose: 100 mg Enoxaparin Sodium (Lovenox) 40 mg SC DAILY [facility] PRN Reason: Protocol Last Admin: 05/18/17 11:55 Dose: Not Given Furosemide (Lasix) 60 mg PO DAILY [facility] Last Admin: 05/18/17 10:33 Dose: 60 mg Hydromorphone HCl (Dilaudid) 1 mg IVP Q4H PRN PRN Reason: Pain, severe (8-10) Last Admin: 05/18/17 13:35 Dose: 1 mg Linezolid (Zyvox 600mg/300ml D5w) 600 mg in 300 mls @ 200 mls/hr IVPB Q12 [facility] PRN Reason: Protocol Stop: 05/22/17 22:01 Last Admin: 05/18/17 11:42 Dose: 200 mls/hr Aztreonam (Azactam 1 Gm) 100 mls @ 100 mls/hr IVPB Q12 [facility] PRN Reason: Protocol Stop: 05/23/17 13:01 Last Admin: 05/18/17 14:29 Dose: 100 mls/hr Sodium Chloride (Sodium Chloride 0.45%) 1,000 mls @ 40 mls/hr IV .Q24H [facility] Last Admin: 05/18/17 14:29 Dose: 40 mls/hr Levothyroxine Sodium (Synthroid) 100 mcg PO DAILY@0630 [facility] Last Admin: 05/18/17 05:54 Dose: 100 mcg Losartan Potassium (Cozaar) 25 mg PO DAILY [facility] Last Admin: 05/18/17 11:47 Dose: 25 mg Non-Formulary Medication (Ubidecarenone [Co Q-10]) 1 tab PO DAILY [facility] Last Admin: 05/18/17 11:48 Dose: Not Given Simethicone (Mylicon Chew Tab) 80 mg PO P[facility] PRN PRN Reason: GI distress Last Admin: 05/17/17 21:14 Dose: 80 mg Tramadol/Acetaminophen (Ultracet 37.5/325 Mg) 1 tab PO Q6H PRN PRN Reason: Pain, moderate (4-7) Last Admin: 05/18/17 08:02 Dose: 1 tab Zolpidem Tartrate (Ambien) 5 mg PO HS PRN; Protocol PRN Reason: Insomnia Last Admin: 05/17/17 21:14 Dose: 5 mg - Labs Labs: 05/18/17 06:37 05/18/17 06:37 PT 12.7 Seconds (9.9-11.8) H 05/15/17 12:47 INR 1.18 (0.93-1.08) H 05/15/17 12:47 APTT 29.8 Seconds (23.7-30.8) 05/15/17 12:47 - Constitutional Appears: Well, Non-toxic, No Acute Distress - Extremities Exam Additional comments: RLE focused exam: Vasc: DP/PT pulses palpable 2/4 b/l. CFT < 3 seconds to all digits b/l. Skin temperature warm to warm from proximal to distal, increased at right leg. Mild edema noted to periwound area Neuro: Epicritic and protective sensation grossly intact b/l Derm: Superficial wound measuring roughly 3 cm x 2 cm x 0.5 cm noted to posterior right calf. No tracking, tunneling, undermining, or probe to bone. Moderate periwound erythema noted, decreased from yesterday. Serous drainage noted on dressing with greenish hue. No purulent drainage expressed today and no malodor noted. No other clinical signs of infection appreciated. No other open lesions, wounds, maceration, xerosis, abnormal pigmentation or abnormal growths appreciated b/l MSK: POP noted to wound site and at right foot - Neurological Exam Neurological Exam: Alert, Awake, Oriented x3 - Psychiatric Exam Psychiatric exam: Normal Affect, Normal Mood Assessment and Plan - Assessment and Plan (Free Text) Assessment: 76 year old female seen at bedside for infected posterior right leg wound Plan: Patient seen and evaluated at bedside Charts, labs and vitals reviewed: WBC 6.[address] Mitchell Wound dressed with optifoam dressing Continue IV abx LE MRI: No signs of underlying abscess, no signs of xray Continue PT No surgical intervention planned at this time [facility] visits recommended for dressing changes once patient is DC'd Patient to follow up in wound care center weekly once DC'd Podiatry will continue to follow while patient in house <Placido Mitchell - Last Filed: 05/18/17 16:35> Objective - Vital Signs/Intake and Output Vital Signs (last 24 hours): Temp Pulse Resp BP Pulse Ox 99 F 68 20 112/62 96 05/18/17 08:43 05/18/17 11:47 05/18/17 08:43 05/18/17 11:47 05/18/17 08:43 Intake and Output: 05/18/17 05/18/17 06:59 18:59 Intake Total 180 360 Balance 180 360 - Medications Medications: Current Medications Artificial Tears (Refresh Opth Soln) 0 ml OU BID PRN PRN Reason: Dry eyes Last Admin: 05/16/17 18:05 Dose: 1 ml Aspirin (Aspirin Chewable) 81 mg PO DAILY [facility] Last Admin: 05/18/17 11:37 Dose: 81 mg Carvedilol (Coreg) 3.125 mg PO DAILY [facility] Last Admin: 05/18/17 11:36 Dose: 3.125 mg Clopidogrel Bisulfate (Plavix) 75 mg PO DAILY [facility] Last Admin: 05/18/17 11:37 Dose: 75 mg Docusate Sodium (Colace) 100 mg PO BID [facility] Last Admin: 05/18/17 11:48 Dose: 100 mg Enoxaparin Sodium (Lovenox) 40 mg SC DAILY [facility] PRN Reason: Protocol Last Admin: 05/18/17 11:55 Dose: Not Given Furosemide (Lasix) 60 mg PO DAILY [facility] Last Admin: 05/18/17 10:33 Dose: 60 mg Hydromorphone HCl (Dilaudid) 1 mg IVP Q4H PRN PRN Reason: Pain, severe (8-10) Last Admin: 05/18/17 13:35 Dose: 1 mg Linezolid (Zyvox 600mg/300ml D5w) 600 mg in 300 mls @ 200 mls/hr IVPB Q12 [facility] PRN Reason: Protocol Stop: 05/22/17 22:01 Last Admin: 05/18/17 11:42 Dose: 200 mls/hr Aztreonam (Azactam 1 Gm) 100 mls @ 100 mls/hr IVPB Q12 [facility] PRN Reason: Protocol Stop: 05/23/17 13:01 Last Admin: 05/18/17 14:29 Dose: 100 mls/hr Sodium Chloride (Sodium Chloride 0.45%) 1,000 mls @ 40 mls/hr IV .Q24H [facility] Last Admin: 05/18/17 14:29 Dose: 40 mls/hr Levothyroxine Sodium (Synthroid) 100 mcg PO DAILY@0630 [facility] Last Admin: 05/18/17 05:54 Dose: 100 mcg Losartan Potassium (Cozaar) 25 mg PO DAILY [facility] Last Admin: 05/18/17 11:47 Dose: 25 mg Non-Formulary Medication (Ubidecarenone [Co Q-10]) 1 tab PO DAILY [facility] Last Admin: 05/18/17 11:48 Dose: Not Given Simethicone (Mylicon Chew Tab) 80 mg PO [facility] PRN PRN Reason: GI distress Last Admin: 05/17/17 21:14 Dose: 80 mg Tramadol/Acetaminophen (Ultracet 37.5/325 Mg) 1 tab PO Q6H PRN PRN Reason: Pain, moderate (4-7) Last Admin: 05/18/17 08:02 Dose: 1 tab Zolpidem Tartrate (Ambien) 5 mg PO HS PRN; Protocol PRN Reason: Insomnia Last Admin: 05/17/17 21:14 Dose: 5 mg - Labs Labs: 05/18/17 06:37 05/18/17 06:37 PT 12.7 Seconds (9.9-11.8) H 05/15/17 12:47 INR 1.18 (0.93-1.08) H 05/15/17 12:47 APTT 29.8 Seconds (23.7-30.8) 05/15/17 12:47 Attending/Attestation - Attestation I have personally seen and examined this patient.: Yes I have fully participated in the care of the patient.: Yes I have reviewed all pertinent clinical information, including history, physical exam and plan: Yes
--- NOTE | 2017-05-18 16:06 | PN ---
DATE: SUBJECTIVE: The patient is a 76-year-old female, seen and examined at bedside. She is tolerating IV antibiotics, but is having extreme pain to cellulitic site despite on morphine. She has not been getting up and walking, is for possible subacute rehab; however, is very depressed and calling in psychiatric evaluation. No chest pain. No shortness of breath. No nausea. No vomiting. PHYSICAL EXAMINATION: VITAL SIGNS: Blood pressure currently is 112/62, pulse rate of 68, temperature is 99, and O2 saturation is 96% on room air. HEENT: Normocephalic and atraumatic. Agu[place] conjunctivae. Nonicteric sclerae. NECK: No JVD. No thyromegaly. CARDIOVASCULAR: Regular rate and rhythm. S1 and S2 appreciated. LUNGS: Bilateral air entry is positive. No wheezes or rhonchi. ABDOMEN: Nondistended and nontender. Positive bowel sounds. EXTREMITIES: There is a bandage to the bilateral legs and trace pitting edema. LABORATORY DATA: WBCs of 6.4, hemoglobin of 9.3, and platelets of 184. Chemistry within normal limits except for a creatinine of 1.9. Blood cultures are negative. ASSESSMENT: 1. Cellulitis. 2. Anemia. 3. Acute renal insufficiency. 4. Depression. PLAN: At this time, we will get a consult with Psychiatry in order to evaluate the patient. We will continue her on her IV antibiotics at this point, as well as, her pain management that she is receiving, as well as, Lasix and we will get PT/OT to see her in order to get her over to a subacute rehab. Bharat Fontana MD
--- NOTE | 2017-05-18 20:53 | CON ---
DATE: IDENTIFICATION The patient is a 76-year-old white female with a persistent right lower extremity wound of approximately 3 weeks duration and that had failed outpatient treatment and had been worsening. PAST MEDICAL HISTORY: Pulmonary hypertension, hypercholesterolemia, myocardial infarction ("40%" according to the patient) in 1990, CAD, stent placement, congestive heart failure with a persistent right calf ulcer, along with angina, SOB, dizziness, numbness of the upper and lower extremities, cataracts, hypothyroidism, osteoarthritis, status post right ankle fracture, anemia, unsteady gait and recurrent urinary tract infections. SOCIAL HISTORY: The patient is a [place] (born in [place] and grew up in [place]). 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 She had been for 23 years and her left her for another woman. This "shattered her" emotionally. She has two children from that marriage, who are okay. The patient has been the focus of concern presently because of her depressed affect. The chart indicates that she has a psychological disorders of anxiety and depression, although the patient denies mental health involvement presently and denies the need for refuses and I offered to put her on an antidepressant. She indicated that she has been a functional woman, does not have a history of suicidality and is not happy with her physical status which does impact on her mood status. She expresses aware of this also of the traumatic sequelae of having had her leave her for another woman. DIAGNOSIS Depression, not otherwise specified. RECOMMENDATIONS As noted above. Thank you for this consultation. Cash Parmar MD/ PhD
--- NOTE | 2017-05-21 08:29 | CP.PCM.PCO ---
Physician Communication Note - Physician Communication Note Physician Communication Note: saw pt
== END 2017-05-18 23:00 | DRG 593 ==
LOC: ED 12:16 → ERH 14:02 → 5RNO 15:46
PROVIDERS: ADMIT Family Medicine; ATTEND Family Medicine
DX: L97.919 Non-pressure chronic ulcer of unspecified part of right lower leg with unspecified severity (principal); L03.115 Cellulitis of right lower limb; Z68.42 Body mass index [BMI] 45.0-49.9, adult; I50.9 Heart failure, unspecified; I27.20 Pulmonary hypertension, unspecified; I11.0 Hypertensive heart disease with heart failure; E66.01 Morbid (severe) obesity due to excess calories; D64.9 Anemia, unspecified; I25.10 Atherosclerotic heart disease of native coronary artery without angina pectoris; E78.5 Hyperlipidemia, unspecified; E03.9 Hypothyroidism, unspecified; E78.00 Pure hypercholesterolemia, unspecified; F32.9 Major depressive disorder, single episode, unspecified; N28.9 Disorder of kidney and ureter, unspecified; F41.9 Anxiety disorder, unspecified; I25.2 Old myocardial infarction; Z95.5 Presence of coronary angioplasty implant and graft; Z79.02 Long term (current) use of antithrombotics/antiplatelets; Z79.82 Long term (current) use of aspirin; Z90.49 Acquired absence of other specified parts of digestive tract; Z87.891 Personal history of nicotine dependence; Z82.49 Family history of ischemic heart disease and other diseases of the circulatory system; Z83.3 Family history of diabetes mellitus